=== PATIENT | female | born 1975 | race American Indian/Alaskan Native ===

== ENCOUNTER 2018-10-10 11:56 | Emergency (ER) | payer OTHER, BC ==
[~2018-10-10] VITALS: Ht 170.2 cm; Wt 99.8 kg
[~2018-10-10 11:56] MED LIST: ACETAMINOPHEN325 M1 PO; CALCIUM500 M1 PO; CEPHALEXIN500 MG PO; COZAAR25 MG PO; CRESTOR10 MG PO; DOXYCYCLINE HY100 MG PO; FENOFIBRATE160 MG PO; GLIPIZIDE XL2.5 MG PO; KONDREMUL2.5 ML/5 M PO; LEVOTHYROXINE50 MCG PO; METFORMIN HCL500 MG PO; MOTRIN IB200 MG PO; OMEGA-31000 MG PO; OMEPRAZOLE20 MG PO; PERCOCET 5-3251 EACH PO; PHENAZOPYRIDIN100 MG PO; PSEUDOEPHEDRINE60 MG PO; SENOKOT8.6 MG PO; THYROID PO; VITAMIN D35000 UNIT PO; VITAMIN D5000 UNI1 PO; ZOFRAN4 MG PO; [UNRECOGNIZED DRUG - OTHER] PO
[2018-10-10] MEDS ORDERED: NAPROSYN500 MG PO (12:31)
== END 2018-10-10 12:40 | disposition home or self-care (01) ==
LOC: ED 11:56
DX: S80.01XA Contusion of right knee, initial encounter (principal); E11.9 Type 2 diabetes mellitus without complications; Z87.442 Personal history of urinary calculi; Z90.710 Acquired absence of both cervix and uterus; Z88.2 Allergy status to sulfonamides; Z88.5 Allergy status to narcotic agent; Z79.84 Long term (current) use of oral hypoglycemic drugs; Z79.899 Other long term (current) drug therapy; W00.0XXA Fall on same level due to ice and snow, initial encounter
CPT/HCPCS: 73560; 99283-25

== ENCOUNTER 2024-08-05 11:26 | Day surgery (SDC) | payer BC, OTHER ==
[~2024-08-05] VITALS: Ht 170.2 cm; Wt 88.2 kg
--- NOTE | ~2024-08-05 | OR ---
[facility] [address] [place], [place] [address] Draft DATE OF OPERATION: 08/05/2024 SURGEON: Arlyn Henry MD PREOPERATIVE DIAGNOSIS: Colon screening. POSTOPERATIVE DIAGNOSES: 1. Pandiverticulosis. 2. Small polyp of cecum (excised). PROCEDURE: Total colonoscopy to cecum with cold morcellation polypectomy x1. ANESTHESIA: Intravenous sedation; fentanyl 200 mcg and Versed 9 mg. INDICATION: This 49-year-old woman is a patient of Dr. Cuevas at [facility]. She had undergone multiple colonoscopies in the past elsewhere. She was thought at one time to have possible inflammatory bowel disease, but she has no current symptoms of bleeding, diarrhea, or constipation. Her last colonoscopy was greater than five years ago, probably in [place]. She has unclear history of polyps in the past, but no family history of colon cancer that she is aware of. She is admitted to undergo screening colonoscopy. She understands the risk of bleeding, infection, and perforation. FINDINGS: The prep was excellent. Complete colonoscopy was undertaken of the cecum with full intubation of the cecum. There was a very small adenomatous appearing polyp of the cecum, which was excised with cold morcellation technique. The remaining colon had numerous diverticula, but no other abnormalities of concern. Retroflexed view was normal as well. PROCEDURE OF DETAIL: The patient was brought to the endoscopy suite and placed in the lateral decubitus position, given intravenous sedation to the point of slurred speech and nystagmus. Digital rectal examination was normal. An Olympus video colonoscope was passed in the rectum. Ileocecal valve and appendiceal orifice were normal. Upon full intubation of the cecum, the scope was removed and PATIENT NAME: DERIK RODRIGUEZ OPERATIVE REPORT DATE OF : 73 REPORT #: [id number] PHYSICIAN: ARLYN HENRY MD PCP: TARA CUEVAS MD REPORT IS CONFIDENTIAL AND NOT TO BE RELEASED WITHOUT AUTHORIZATION [facility] [address] [place] [id number] Draft withdrawn immediately noting a small polyp of the cecum itself. This was excised with cold morcellation technique. Further withdrawal of the scope showed only diverticulosis throughout the colon. Retroflexed view of the rectum was normal. Scope was removed and the patient was taken to the recovery room in good condition. CONCLUSION DIAGNOSES: Polyp x1 and diverticulosis. PLAN: Recommend repeat colonoscopy in 7 to 10 years per current guidelines, sooner if symptoms should develop. Recommend also high-fiber diet. She will return to the ongoing care of Dr. Cuevas at [facility]. MD DEMARCO Waterman/CARLOS /[id number] cc: Dr. Cuevas Copies: ~ PATIENT NAME: DERIK RODRIGUEZ OPERATIVE REPORT DATE OF : 73 REPORT #: [id number] PHYSICIAN: ARLYN HENRY MD PCP: TARA CUEVAS MD REPORT IS CONFIDENTIAL AND NOT TO BE RELEASED WITHOUT AUTHORIZATION
[~2024-08-05 11:26] MED LIST changes: +ACTOS30 MG PO; +ARTHRITIS PAIN150 G1 TOP; +CYCLOBENZAPRINE10 MG PO; +IBLOOD GLUCOSE TEST STRIP 1 EA TEST VI PRN; +IBU800 MG PO; +JARDIANCE25 MG PO; +LACTATED RINGER'S 1,000 ML IV SCH; +LEVOTHYROXINE75 MCG PO; +LIDOCAINE HCL 1% 5 ML SDV INJ ONE; +LOSARTAN POTASS25 MG PO; +METFORMIN HCL500 M2 PO; +MIDAZOLAM HCL 5 MG/5 ML VIAL IV PRN; +NAPROSYN500 MG PO; +OMEGA 3 1,0001 EACH PO; +ONDANSETRON HCL4 MG PO; +OZEMPIC2 MG/0.75 SUB-Q; +ROSUVASTATIN CA10 MG PO; +TRAMADOL HCL50 MG PO; +fentaNYL citrate 100 MCG/2 ML VIAL IV PRN
[2024-08-05 11:44] VITALS: BP 123/72
[2024-08-05] MEDS ORDERED: VITAMIN B121000 MCG PO (11:49)
[2024-08-05] MEDS ORDERED: MIDAZOLAM HCL 5 MG/5 ML VIAL ONE (12:39)
[2024-08-05] MEDS ORDERED: fentaNYL citrate 100 MCG/2 ML VIAL ONE (12:40)
--- NOTE | 2024-08-05 13:36 | NUR ---
08/05/24 1336 Ember Cameron 1328-PATIENT ARRIVED TO PACU ON 1L NC RR EVEN. PATIENT REACTIVE TO VERBAL STIMULI SLIGHTLY OPENS EYES AND IS VERY DROWSY. ORIENTED TO PACU. PATIENT LAYING LEFT LATERAL ABDOMEN SOFT. IVF INFUSING. 1332-PATIENT SLEEPING 1L NC 93% RR EVEN. GLUCOSE CHECKED 128 PATIENT GOES BACK TO SLEEP. IVF INFUSING
[2024-08-05 14:40] VITALS: BP 110/58
--- NOTE | 2024-08-06 11:25 | PATH ---
[facility] [address] [place], [place] [address] Signed SPECIMEN(S): A CECUM POLYP SPECIMEN SOURCE: A. CECUM POLYP CLINICAL HISTORY: History of inflammatory bowel disease, constipation alternates with diarrhea FINAL PATHOLOGIC DIAGNOSIS: Cecum, polypectomy: - Tubular adenoma BRP MICROSCOPIC EXAMINATION: Histologic sections of all submitted blocks are examined by light microscopy. These findings, together with the gross examination, support the pathologic diagnosis. GROSS DESCRIPTION: The specimen, labeled and designated "Mathieu Christian cecum polyp," is received in formalin and consists of two rueda soft tissue fragments, ranging from 0.2-0.4 cm. Entirely submitted in (A1). VB (under the direct supervision of a pathologist) The Gross Description was prepared using a voice recognition system. The report was reviewed for accuracy; however, sound-alike word errors, addition and/or deletions may occur. If there is any question about this report, please contact Client Services. ADDITIONAL NOTES: Immunohistochemical and/or in situ hybridization studies if performed in this case included appropriate positive controls that reacted as expected. This test was developed and its performance characteristics determined by [facility]. It has not been cleared or approved by the U.S. Food and Drug Administration. The FDA has determined that such clearance or approval is not necessary. This test is used for clinical purposes. It should not be regarded as investigational or for research. [facility] is certified under the Clinical Laboratory Improvement Amendments of 1988 (CLIA) as qualified to perform high complexity clinical laboratory testing. PATIENT NAME: DERIK RODRIGUEZ PATHOLOGY DATE OF : 73 REPORT #: [id number] PHYSICIAN: NAEL KEATING PCP: TARA BURNETT MD REPORT IS CONFIDENTIAL AND NOT TO BE RELEASED WITHOUT AUTHORIZATION [address] [place], [place] [address] Signed PERFORMING LABORATORY: Technical component [place] [address] (CLIA# [id number]). Professional interpretation was performed by [facility], [address] [place] [address] (CLIA#: [id number]). Diagnostician: Jhonny Dumas MD Pathologist Electronically Signed 08/06/2024 Copies: ~ PATIENT NAME: DERIK RODRIGUEZ PATHOLOGY DATE OF : 73 REPORT #: [id number] PHYSICIAN: NAEL KEATING PCP: TARA BURNETT MD REPORT IS CONFIDENTIAL AND NOT TO BE RELEASED WITHOUT AUTHORIZATION
== END 2024-08-05 14:45 | disposition home or self-care (01) ==
LOC: OPS 11:26 → DS 11:26 → OPS 12:30 → DS 13:00 → OPS 14:45
PROVIDERS: ATTEND Surgery
PROC: 0DBH8ZZ Excision of Cecum, Via Natural or Artificial Opening Endoscopic (ICD-10-PCS; principal; 2024-08-05 12:30)
DX: Z12.11 Encounter for screening for malignant neoplasm of colon (principal); D12.0 Benign neoplasm of cecum; K57.30 Diverticulosis of large intestine without perforation or abscess without bleeding; I10 Essential (primary) hypertension; E78.5 Hyperlipidemia, unspecified; E03.9 Hypothyroidism, unspecified; E11.9 Type 2 diabetes mellitus without complications; Z79.85 Long-term (current) use of injectable non-insulin antidiabetic drugs; Z79.890 Hormone replacement therapy; Z79.84 Long term (current) use of oral hypoglycemic drugs; Z79.899 Other long term (current) drug therapy; Z88.2 Allergy status to sulfonamides; Z90.710 Acquired absence of both cervix and uterus; Z90.49 Acquired absence of other specified parts of digestive tract; Z87.19 Personal history of other diseases of the digestive system
CPT/HCPCS: 99153; G0500; J2250; J3010; J7121

== ENCOUNTER 2025-01-26 13:04 | Day surgery (SDC) | payer BC, OTHER ==
[~2025-01-26] VITALS: Ht 170.2 cm; Wt 87.3 kg
[~2025-01-26 13:04] MED LIST changes: +ACYCLOVIR200 MG PO; +MACROBID 100 M100 MG PO; +VITAMIN B121000 MCG PO
[2025-01-26 13:24] VITALS: BP 131/73
[2025-01-26] MEDS ORDERED: fentaNYL citrate 100 MCG/2 ML VIAL ONE (14:30)
[2025-01-26] MEDS ORDERED: MIDAZOLAM HCL 5 MG/5 ML VIAL ONE (14:30)
--- NOTE | 2025-01-26 14:55 | NUR ---
01/26/25 1455 Kristian Marin 1447: PT ARRIVED TO PACU VIA STRETCHER. PT ON 2L NC. PT EASILY AROUSABLE. PTS SATS IN THE MID 90'S. 1450: PT TITRATED TO RA AT THIS TIME. PTS SATS IN THE LOW 90'S AT THIS TIME.
[2025-01-26 15:15] VITALS: BP 127/68
--- NOTE | 2025-01-28 09:58 | OR ---
[facility] [address] [place], [place] [address] Signed DATE OF OPERATION: 01/26/2025 SURGEON: Arlyn Henry MD PREOPERATIVE DIAGNOSIS: History of hiatal hernia and dysphagia, possible stricture. POSTOPERATIVE DIAGNOSIS: Low-grade distal Schatzki ring with minimal distal esophagitis, flap valve marginal. PROCEDURE: Esophagogastroduodenoscopy with biopsy. ANESTHESIA: Intravenous sedation fentanyl 100 mcg and Versed 5 mg. INDICATION: This 49-year-old [place] Citizen woman is a patient of Dr. Cuevas at [facility]. In the past, she has undergone upper endoscopy by Dr. Tara Pat in [place], [place]. She is said to have a probable hiatal hernia. She is uncertain if she has ever had esophageal dilation, though she did have in the past dysphagia. She has been treated with PPI medication, which is helpful to her. If she goes off the PPI medication, she has recurrence of her dysphagia, it is noted. She has no known family history of esophageal cancer. She underwent colonoscopy by me in May of this past year but now seeks upper endoscopy to affirm that there is no sign of malignancy. She has had dysphagia from time to time, but no hematemesis and no weight loss. She understands the risk of upper endoscopy including but not limited to bleeding, infection, and perforation and wished to proceed. FINDINGS: There was mild distal esophagitis, but no Mendoza epithelium. There was a low-grade Schatzki's ring noted as well. Stomach and duodenum were essentially normal. The flap valve was marginal, though there was no sign of large hiatal hernia. DESCRIPTION OF PROCEDURE: The patient was brought to the endoscopy suite and placed in lateral decubitus position after undergoing lidocaine hypopharyngeal anesthesia. A bite block was placed. After intravenous sedation was induced with full cardiopulmonary monitoring. Olympus video upper endoscope was passed in the hypopharynx. The vocal cords were totally normal. Scope was advanced to the esophagus without problem. More proximal esophagus in Electronically Signed By: ARLYN HENRY MD 01/28/25 0958 PATIENT NAME: DERIK RODRIGUEZ OPERATIVE REPORT DATE OF : 73 REPORT #: [id number] PHYSICIAN: ARLYN HENRY MD PCP: TARA CUEVAS MD REPORT IS CONFIDENTIAL AND NOT TO BE RELEASED WITHOUT AUTHORIZATION [facility] [address] [place], [place] [address] Signed midportion was normal. The distal portion showed a mild low-grade Schatzki's ring. Scope was advanced to the stomach without problem. Rugal folds were normal as was antral motility. Scope was passed through the pylorus into the duodenum. Biopsies were obtained there to assess for celiac disease. The scope was withdrawn. A biopsy was then taken of the antrum for both SAIMA and pathologic testing. Retroflexed view was undertaken showing relatively redundant flap valve actually but possibly marginal in its function. The scope was straightened and withdrawn. Biopsies taken of the Schatzki's ring and subsequently surrounding tissue of the esophagus proper. Further withdrawal allowed for biopsy of the midesophagus to assess for eosinophilic esophagitis though there was no evidence of stigmata of that. Further withdrawal showed no other findings. The patient was taken to the recovery room in good condition. CONCLUDING DIAGNOSIS: Distal esophageal Schatzki's ring accounting for episodic dysphagia. No doubt related to reflux. No associated Mendoza's epithelium and flap valve marginal. PLAN: Recommend continued use of PPI medication, Prilosec 20 mg daily. Anti-reflux surgery would be an option in her case as well. She will return to the ongoing care of Dr. Cuevas. I will see patient in 4 to 6 weeks to review pathology reports and a plan going forward. MD DEMARCO Waterman/EZEQUIELL /[id number] cc: Dr. Cuevas [facility] Copies: ~ Electronically Signed By: ARLYN HENRY MD 01/28/25 0958 PATIENT NAME: DERIK RODRIGUEZ OPERATIVE REPORT DATE OF : 73 REPORT #: [id number] PHYSICIAN: ARLYN HENRY MD PCP: TARA CUEVAS MD REPORT IS CONFIDENTIAL AND NOT TO BE RELEASED WITHOUT AUTHORIZATION
--- NOTE | 2025-01-29 15:17 | PATH ---
[facility] [address] [place], [place] [address] Signed SPECIMEN(S): A DUODENAL BIOPSY SPECIMEN(S): B ANTRUM BIOPSY SPECIMEN(S): C LOWER ESOPHAGEAL BIOPSY SPECIMEN(S): D LOWER ESOPHAGEAL BIOPSY SPECIMEN(S): E MIDDLE ESOPHAGEAL BIOPSY SPECIMEN SOURCE: A. DUODENAL BIOPSY B. ANTRUM BIOPSY C. LOWER ESOPHAGEAL BIOPSY D. LOWER ESOPHAGEAL BIOPSY E. MIDDLE ESOPHAGEAL BIOPSY CLINICAL HISTORY: Pre-: History of hiatal hernia, increasing dysphagia. Post: Mild gastritis, Schatzki's ring. A) biopsy, B) biopsy, C) Schatzki's ring biopsy, D) biopsy, E) biopsy FINAL PATHOLOGIC DIAGNOSIS: A. Duodenal biopsy: - Benign duodenal mucosa with slight villous attenuation and mildly increased epithelial lymphocytes. - See Comment. B. Antrum biopsy: - Benign gastric mucosa with focal slight chronic inflammation. - Negative for evidence of Helicobacter organisms on routine HE-stained sections. C. Lower esophageal biopsy: - Esophageal and gastric mucosa with reactive features, negative for specialized intestinal metaplasia or dysplasia. D. Lower esophageal biopsy: - Esophageal and gastric mucosa with specialized intestinal (goblet cell) metaplasia, negative for dysplasia. E. Mid esophageal biopsy: - Benign esophageal epithelium, negative for increased epithelial eosinophils. COMMENT: The duodenal biopsy findings are somewhat nonspecific. The differential diagnosis includes lymphocytic duodenitis, emerging or partially treated celiac disease, infection, medication effect, and idiopathic changes. Clinical correlation is requested. PATIENT NAME: RODGER CERWSDERIK GARLAND PATHOLOGY DATE OF : 73 REPORT #: [id number] PHYSICIAN: NAEL PATHOLOGY PCP: TARA BURNETT MD REPORT IS CONFIDENTIAL AND NOT TO BE RELEASED WITHOUT AUTHORIZATION [facility] [address] [place], [place] [address] Signed JVR:smn MICROSCOPIC EXAMINATION: Histologic sections of all submitted blocks are examined by light microscopy. These findings, together with the gross examination, support the pathologic diagnosis. GROSS DESCRIPTION: A. The specimen, labeled and designated "Farrow, T, duodenal biopsy," is received in formalin and consists of four rueda soft tissue fragments, ranging from 0.3 -0.5 cm. Entirely submitted in (A1). B. The specimen, labeled and designated "Farrow, T, antrum biopsy," is received in formalin and consists of two rueda soft tissue fragments, ranging from 0.3-0.4 cm. Entirely submitted in (B1). C. The specimen, labeled and designated "Farrow, T, lower esophageal biopsy," is received in formalin and consists of three rueda soft tissue fragments, ranging from 0.1-0.3 cm. Entirely submitted in (C1). D. The specimen, labeled and designated "Farrow, T, lower esophageal biopsy #2," is received in formalin and consists of two rueda soft tissue fragments, ranging from 0.1-0.3 cm. Entirely submitted in (D1). E. The specimen, labeled and designated "Farrow, T, middle esophageal biopsy," is received in formalin and consists of one rueda soft tissue fragment, 0.4 cm. Entirely submitted in (E1). AB (under the direct supervision of a pathologist) The Gross Description was prepared using a voice recognition system. The report was reviewed for accuracy; however, sound-alike word errors, addition and/or deletions may occur. If there is any question about this report, please contact Client Services. PERFORMING LABORATORY: Technical component was performed by [facility], [address] [facility] [place] [address] (CLIA# [id number]). Professional interpretation [facility], [address] [place], [place] [address]e., [place] [address] (CLIA#: [id number]). Diagnostician: Pierre Walker MD Pathologist Electronically Signed 01/29/2025 PATIENT NAME: RODGER BUSTOSDERIK PATHOLOGY DATE OF : 73 REPORT #: [id number] PHYSICIAN: NAEL PATHOLOGY PCP: TARA BURNETT MD REPORT IS CONFIDENTIAL AND NOT TO BE RELEASED WITHOUT AUTHORIZATION [facility] [address] [place] [address] [place], [place] [address] Signed Copies: ~ PATIENT NAME: RODGER BUSTOSDERIK PATHOLOGY DATE OF : 73 REPORT #: [id number] PHYSICIAN: NAEL KEATING PCP: TARA BURNETT MD REPORT IS CONFIDENTIAL AND NOT TO BE RELEASED WITHOUT AUTHORIZATION
== END 2025-01-26 15:25 | disposition home or self-care (01) ==
LOC: DS 13:04
PROVIDERS: ATTEND Surgery
PROC: 0DB68ZX Excision of Stomach, Via Natural or Artificial Opening Endoscopic, Diagnostic (ICD-10-PCS; 2025-01-26)
PROC: 0DB28ZX Excision of Middle Esophagus, Via Natural or Artificial Opening Endoscopic, Diagnostic (ICD-10-PCS; 2025-01-26)
PROC: 0DB38ZX Excision of Lower Esophagus, Via Natural or Artificial Opening Endoscopic, Diagnostic (ICD-10-PCS; 2025-01-26)
PROC: 0DB98ZX Excision of Duodenum, Via Natural or Artificial Opening Endoscopic, Diagnostic (ICD-10-PCS; principal; 2025-01-26 14:00)
DX: K22.2 Esophageal obstruction (principal); K21.00 Gastro-esophageal reflux disease with esophagitis, without bleeding; K29.50 Unspecified chronic gastritis without bleeding; I10 Essential (primary) hypertension; E11.9 Type 2 diabetes mellitus without complications; E03.9 Hypothyroidism, unspecified; Z87.442 Personal history of urinary calculi; Z90.711 Acquired absence of uterus with remaining cervical stump; Z88.2 Allergy status to sulfonamides; Z79.84 Long term (current) use of oral hypoglycemic drugs; Z79.899 Other long term (current) drug therapy; Z79.890 Hormone replacement therapy
CPT/HCPCS: 84703; 99153; G0500; J2250; J3010; J7121